=== PATIENT | female | born 1960 | race Caucasian/White ===

== ENCOUNTER → 2017-03-21 09:52 | Outpatient (CLI) | payer MEDICARE | END | disposition home or self-care (01) | LOC: D.MRI 09:52 | DX: M54.16 Radiculopathy, lumbar region (principal) ==

== ENCOUNTER → 2018-02-13 13:47 | Outpatient (CLI) | payer MEDICARE | END | disposition home or self-care (01) | LOC: D.MRI 13:47 | DX: M54.16 Radiculopathy, lumbar region (principal) ==